=== PATIENT | female | born 1940 ===

== ENCOUNTER 2017-05-07 07:30 | Day surgery (SDC) | payer MEDICARE ==
[2017-05-01 06:38] VITALS: BMI 39.3
[2017-05-07 08:03] LABS: BASO # 0.01 K/mm3 (0.0-2.0); BASO % 0.1 % (0.0-3.0); EOS # 0.1 (0.0-0.7); GRAN # 6.88 (1.4-6.5); GRAN % 66.8 % (50.0-68.0); HEMOGLOBIN 9.7 g/dL (12.0-16.0); LYMPH # 2.6 (1.2-3.4); LYMPH % 25.3 % (22.0-35.0); MEAN CORPUSCULAR HEMOGLOBIN 27.7 pg (25.0-35.0); MEAN CORPUSCULAR HGB CONC 31.5 g/dl (31.0-37.0); MEAN PLATELET VOLUME 11.7 fl (7.0-11.0); MONO # 0.7 (0.1-0.6); MONO % 6.8 % (1.0-6.0); PLATELET COUNT 284 10^3/uL (120.0-450.0); RED CELL DISTRIBUTION WIDTH 13.8 % (11.5-14.5); WHITE BLOOD COUNT 10.3 10^3/ul (4.5-11.0)
[2017-05-07 08:14] LABS: INR 1.09 (0.93-1.08); PARTIAL THROMBOPLASTIN TIME 25.9 Seconds (23.7-30.8); PROTHROMBIN TIME 11.8 Seconds (9.9-11.8)
[2017-05-07 08:29] LABS: CALCIUM 9.4 mg/dL (8.4-10.5)
[2017-05-07 08:39] VITALS: O2SAT 96
[2017-05-07] MEDS ORDERED: Lidocaine 2% Inj (20ml) ONE (08:48)
[2017-05-07] MEDS ORDERED: Midazolam 2 MG/2 ML VIAL ONE (08:51)
[2017-05-07] MEDS ORDERED: Iodixanol 320 MG/ML 200 ML BOTTLE IV ONE (09:14)
--- NOTE | 2017-05-07 09:38 | CP.PCM.PN ---
Subjective - Date & Time of Evaluation Date of Evaluation: 05/07/17 Time of Evaluation: 09:35 - Subjective Subjective: cardiac cath performed. nonobstructive CAD. Normal LV function. medical therapy and discharge on same medications Objective - Vital Signs/Intake and Output Vital Signs (last 24 hours): Temp Pulse Resp BP Pulse Ox 98.6 F 89 20 173/68 H 96 05/07/17 07:50 05/07/17 07:50 05/07/17 07:50 05/07/17 07:50 05/07/17 07:50 - Labs Labs: 05/07/17 07:40 05/07/17 07:40 PT 11.8 Seconds (9.9-11.8) 05/07/17 07:40 INR 1.09 (0.93-1.08) H 05/07/17 07:40 APTT 25.9 Seconds (23.7-30.8) 05/07/17 07:40
[2017-05-07] MEDS ORDERED: Sodium Chloride 0.9% 1,000 ML IV SCH (09:45)
--- NOTE | 2017-05-07 10:33 | CARD ---
APPROVED REPORT Procedure(s) performed: Left Heart Catheterization Selective Right and Left Coronary Angiography Left Ventriculogram HISTORY 7 days), diabetes mellitus with oral treatment , previous diagnostic cath, hypertension , dyslipidemia , cerebrovascular disease . INDICATION The indication(s) include : positive stress test. CASE TECHNIQUE The patient was brought electively to the Cardiac Catheterization Laboratory in a fasting state and was prepped and draped in a sterile manner. The right femoral groin was infiltrated with 2% Lidocaine subcutaneous anesthesia. A 6 Fr x 11 cm Melonie sheath was inserted using coronary diagnostic catheters. The left coronary system was accessed and visualized with a 6 Fr JL 4 catheter. The right coronary system was accessed and visualized with a 6 Fr JL 4 catheter. The left ventricle was accessed and visualized with a 6 Fr JR 4 catheter. Left ventricular/Aortic Valve gradient assessed on pullback. Left ventriculogram was performed in VALIENTE projection. Hemostasis was obtained with manual pressure following sheath removal without any complications. The patient tolerated the procedure well and there were no complications associated with the procedure. Vessel Analysis The patient's coronary anatomy is right dominant. The left main coronary artery is a medium size vessel . There is a 30% stenosis in the distal segment. The left main bifurcates to the left anterior descending and circumflex. The left anterior descending artery is a medium size vessel . There is a 40% stenosis in the mid segment. The circumflex artery is a medium size vessel with intimal irregularities and without significant stenosis. The right coronary artery is a medium size vessel . There is a 50% stenosis in the mid segment. Left Ventricle The left ventricular ejection fraction is estimated to be 55%. There was no gradient across the aortic valve upon pullback. Conclusion Nonobstructive CAD. Normal left ventricular function. Recommendations Aggressive Medical Therapy Weight Loss Reduction Program
[2017-05-07 10:55] VITALS: RESP 18; TEMP 98.2
[2017-05-07 14:57] VITALS: BP 135/65; PULSE 78
== END 2017-05-07 15:15 | disposition home or self-care (01) ==
LOC: CATH 07:30
PROVIDERS: ATTEND Internal Medicine Cardiovascular Disease
DX: I25.10 Atherosclerotic heart disease of native coronary artery without angina pectoris (principal); I10 Essential (primary) hypertension; E78.5 Hyperlipidemia, unspecified; E11.9 Type 2 diabetes mellitus without complications; Z79.84 Long term (current) use of oral hypoglycemic drugs
CPT/HCPCS: 36415; 80048; 80061; 85025; 85610; 85730; 86850; 86900; 93458; 99152; C1769; C2629; J1644; J2250; J3010; J7030; J7040; Q9967